=== PATIENT | female | born 1985 | race Caucasian/White ===

== ENCOUNTER 2022-08-02 19:07 | Emergency (ER) | payer OTHER, SELFPAY ==
[2022-08-02 19:19] VITALS: BP 181/130; PULSE 113; RESP 16; TEMP 36.6; O2SAT 99
--- NOTE | 2022-08-02 19:23 | ED.DENTAL ---
HPI - Dental/Oral General Chief complaint: Dental/Oral Stated complaint: tooth ache Time Seen by Provider: 08/02/22 19:30 Source: patient Mode of arrival: ambulatory History of Present Illness HPI Narrative: 36-year-old female presented for complaint of right lower dental pain and jaw swelling worsening over the past 3 days. Denies associated nausea, vomiting, fevers or chills. She has been using cold packs, Tylenol, ibuprofen, Orajel and rinsing with warm salt water. She denies drug use. Smokes half pack per day. MD Complaint: tooth pain Related Data Allergies Allergy/AdvReac Type Severity Reaction Status Date / Time diphenhydramine Allergy Intermediate Unknown Verified 08/02/22 19:13 metoclopramide Allergy Intermediate Unconscious Verified 08/02/22 19:13 Penicillins Allergy Intermediate Unknown Verified 08/02/22 19:13 adhesive Allergy Unknown RASH Verified 06/26/22 13:45 tree nut Allergy Unknown Unknown Verified 06/26/22 13:45 Contrast Media Allergy Intermediate Unknown Uncoded 08/02/22 19:13 Review of Systems Review of Systems: CONSTITUTIONAL: Denies body aches, fever, chills ENT: Denies rhinorrhea, congestion, sore throat, or otalgia. Reports dental pain CARDIOVASCULAR: Denies chest pain, palpitations RESPIRATORY: Denies cough or dyspnea. SKIN: Denies rash, itching, or wounds. MUSCULOSKELETAL: Denies myalgia. NEUROLOGIC: Denies headache, numbness, tingling, or weakness. PMFSH Comments At time of signature, I have reviewed and agree with nursing past medical, surgical, social and family history unless otherwise noted. Please see nursing chart for further information. There is no relevant family history pertinent to the presenting complaint Exam Narrative: GENERAL: Appears in pain; no acute distress. HEAD: Normocephalic, atraumatic. EYES: EOMI. No redness or drainage. Conjunctivae normal. ENT: Dental pain location of #30, moderate medial gum swelling and erythema c/w abscess without active drainage; tooth is broken and brown in color. Mucous membranes pink and moist. TMs normal bilaterally. Throat normal. Uvula midline. NECK: Normal AROM. No lymphadenopathy. CHEST: Clear to auscultation. HEART: Regular rate and rhythm. No murmur appreciated. SKIN: Warm, dry, no rash. Normal skin turgor. NEURO: Alert and oriented x3. Course Course Emergency Course: Patient is aware of diagnosis, understands and agrees to treatment plan. Anticipatory guidance given. Patient agrees to follow-up as directed and is aware of reasons to seek care at the emergency department. Portions of this record may have been created with voice recognition software Level of Care: Express Care Visit Vital Signs Vital signs: Vital Signs Temperature 97.9 F 08/02/22 19:19 Pulse Rate 113 H 08/02/22 19:19 Respiratory Rate 16 08/02/22 19:19 Blood Pressure 181/130 H 08/02/22 19:19 Pulse Oximetry 99 08/02/22 19:19 Oxygen Delivery Room Air 08/02/22 19:19 Temperature 97.9 F 08/02/22 19:34 Pulse Rate 113 H 08/02/22 19:34 Respiratory Rate 16 08/02/22 19:34 Blood Pressure 181/130 H 08/02/22 19:34 Pulse Oximetry 99 08/02/22 19:34 Oxygen Delivery Room Air 08/02/22 19:34 MDM - Dental/Oral MDM Narrative Medical decision making narrative: Patients has right lower dental abscess on exam. There are no focal signs of space occupying lesions that are compromising to the airway; No uvular deviation or soft palate edema. Patient is non-toxic appearing. The floor of the mouth is soft with no signs of Kaz's Angina; no induration below mandible, no neck pain. Patient is without trismus or drooling and able to swallow secretions. Rx abx reviewed with pt. Pt's blood pressure is 180/130. Scarring to arms, pt states from hives. Denies drug use. States BP is always elevated, and I'm in pain and stressed. The patient is clinically sober, AA&Ox3, free from distracting injury. The patient has demonstrated concrete
[2022-08-02 19:34] VITALS: BP 181/130; PULSE 113; RESP 16; TEMP 36.6; O2SAT 99
--- NOTE | 2022-08-02 19:42 | PC.NURSE ---
bp rechecked manually left arm. 180/120.
== END 2022-08-02 19:57 | disposition left against medical advice (07) ==
PROVIDERS: Emergency Provider Nurse Practitioner Family
DX: K04.7 Periapical abscess without sinus (principal); I16.0 Hypertensive urgency; F17.200 Nicotine dependence, unspecified, uncomplicated
CPT/HCPCS: 99213; G0463

== ENCOUNTER 2024-12-10 15:23 | Emergency (ER) | payer OTHER, SELFPAY ==
--- NOTE | 2024-12-10 15:31 | ED.GENADULT ---
HPI - General Adult General Chief complaint: Animal Bite Stated complaint: dog bite Time Seen by Provider: 12/10/24 15:31 Source: patient Mode of arrival: ambulatory Limitations: no limitations History of Present Illness HPI narrative: 38-year-old female patient presents to the [facility] with complaints of a dog bite to the right inner thigh. Patient states she got bit last night. Patient states she does not know the dog and thinks it was a stray. Patient states she did not clean it afterwards just put some Band-Aids on the inner thigh last night went to bed. Patient unaware of when her last tetanus shot was. Patient states that she was on medication for high blood pressure but no longer takes it because she had lost her insurance. Patient states she is having a lot of pain to the area. Denies any body aches, chills. Patient able to ambulate without issue. Related Data Allergies Allergy/AdvReac Type Severity Reaction Status Date / Time diphenhydramine Allergy Intermediate Unknown Verified 12/10/24 15:40 iohexol (From contrast - CT, Allergy Intermediate Unknown Verified 12/10/24 15:54 X-RAY) metoclopramide Allergy Intermediate Unconscious Verified 12/10/24 15:40 Penicillins Allergy Intermediate Unknown Verified 12/10/24 15:40 adhesive Allergy Unknown RASH Verified 12/10/24 15:40 tree nut Allergy Unknown Unknown Verified 12/10/24 15:40 Review of Systems Review of Systems: CONSTITUTIONAL: Denies fever, chills, or sweats. EYES: Denies visual changes, redness, or discharge. ENT: Denies rhinorrhea, congestion, sore throat, or otalgia. CARDIOVASCULAR: Denies chest pain, palpitations, or edema. RESPIRATORY: Denies cough or dyspnea. GASTROINTESTINAL: Denies abdominal pain, nausea, vomiting, or diarrhea. GENITOURINARY: Denies dysuria or hematuria. SKIN: Denies rash or itching. Positive dog bite to right inner thigh MUSCULOSKELETAL: Denies back pain, joint pain, or myalgia. NEUROLOGIC: Denies headache, numbness, or weakness. PSYCHIATRIC: Denies anxiety or depression. [facility] Past Medical History Medical History (Updated 12/10/24 @ 16:16 by ESSIE Cooper) Anemia Anxiety Anorexia Depression Chronic back pain GERD (gastroesophageal reflux disease) Diverticulitis Bronchitis Asthma Hypertension Migraines Seasonal allergies Surgical History Surgical History (Updated 12/10/24 @ 15:35 by ESSIE Cooper) H/O tubal ligation History of appendectomy History of tonsillectomy Comments At the time of my signature I agree with nursing past medical history, surgical, social, and family history. There is no relevant family history pertinent to the presenting complaint. Exam Narrative: GENERAL: Well-appearing, well-nourished, and in no acute distress. HEAD: Normocephalic, atraumatic. EYES: PERRLA and EOMI. ENT: Nares clear, no rhinorrhea or epistaxis. Mucous membranes moist. NECK: Supple. No lymphadenopathy CHEST: Clear to auscultation. No respiratory distress. HEART: Regular rate and rhythm. No murmur heard. Normal peripheral pulses. ABDOMEN: Soft, nontender, nondistended, normal active bowel sounds. EXTREMITIES: Normal range of motion. No edema. SKIN: Warm, dry, no rash. Patient has a wound to the right inner thigh measuring approximately 5 and half by 2 cm with no skin over the area and fat exposed. Patient also has another puncture wound noted near the buttocks area measuring approximately 0.5 x 0.5 cm. No surrounding erythema and no warmth present. NEURO: No focal deficits. Alert and oriented x3. Course Course Level of Care: Express Care Visit Vital Signs Vital signs: Vital Signs Temperature 36.8 C 12/10/24 15:39 Pulse Rate 118 H 12/10/24 15:39 Respiratory Rate 18 12/10/24 15:39 Blood Pressure 184/137 H 12/10/24 15:39 Pulse Oximetry 100 12/10/24 15:39 Oxygen Delivery Room Air 12/10/24 15:39 Temperature 36.8 C 12/10/24 15:39 Pulse Rate 118 H 12/10/24 15:39 Respiratory Rate 18 12/10/24 15:39 Blood Pressure 184/137 H 12/10/24 15:39 Pulse Oximetry 100 12/10/24 15:39 Oxygen Delivery Room Air 12/10/24 15:39 vital signs reviewed. The patient has been informed that they may have pre-hypertension or Hypertension based on a BP reading in the department. I recommend that the patient call the primary care provider listed on their discharge instructions or a physician of their choice this week to arrange follow up for further evaluation of possible pre-hypertension or Hypertension Medical Decision Making MDM Narrative Medical decision making narrative: plan of care for patient is to update tetanus today will clean and dress the wound since it is past 24 hours for suturing. We will discharge home on antibiotics however discussed with patient the fact that she did not clean it right when it happened this could get worse and she may need to go the ER for IV antibiotics. Highly recommend the patient go to the ER for antibiotics today however she has refused At this time but states she may go later. Discussed with patient we will put her on 2 types of antibiotics as well as an antibiotic ointment. She should not have to trying change the dressing today but tomorrow morning she will need to change the dressing, clean with soap water apply the ointment. I also gave her 3 days worth of pain medication considering where the wound is at and how painful it could be. Discussed with patient possible sepsis and symptoms of sepsis and if these occur she needs to go to the ER immediately. Patient verbalized understanding denies any other questions or concerns at this time Differential Diagnosis Differential Diagnosis: Differential diagnosis: Abscess, cellulitis, hidradenitis, laceration, puncture wound. Vital Signs Vital Signs: Vital Signs Temperature 36.8 C 12/10/24 15:39 Pulse Rate 118 H 12/10/24 15:39 Respiratory Rate 18 12/10/24 15:39 Blood Pressure 184/137 H 12/10/24 15:39 Pulse Oximetry 100 12/10/24 15:39 Oxygen Delivery Room Air 12/10/24 15:39 Temperature 36.8 C 12/10/24 15:39 Pulse Rate 118 H 12/10/24 15:39 Respiratory Rate 18 12/10/24 15:39 Blood Pressure 184/137 H 12/10/24 15:39 Pulse Oximetry 100 12/10/24 15:39 Oxygen Delivery Room Air 12/10/24 15:39 Critical Care Time Critical Care Time Critical Care Time: No Discharge Plan Discharge Clinical Impression: Bite by animal Patient Disposition: Home, Self-Care Condition: Stable Instructions: Antibiotic Form, Animal Bite (ED) Additional Instructions: Normal bites can cause infection. Teeth carried germs into the skin. Sometimes these wounds should be closed, especially on the face, but is usually better to let it heal on its own because this decreases the chance of infection. Call your doctor or return to the emergency department if patient worsens or: Fever occurs. Redness or swelling occurs near the wound. Pus found in the wound. Chills, nausea, or vomiting occur. Pain is worse. Joints become painful. Keep the wound clean. She was soap and water. Tetanus shots: Everyone should have a tetanus shot every 5-10 years. He received a tetanus shot today, be sure to tell your primary care doctor about this to update your shot record. Some tetanus shots are combination shots, such as tetanus-diphtheria (Td), or tetanus- diphtheria- pertussis (Tdap). Tell your primary doctor which when you received. If you're not sure about her tetanus status, her doctor's office tomorrow to find out whether you need a booster shot. Rabies: If you need shots to prevent rabies, you will need several shots. He might need to report this to animal control or the local police. These refer to the deep provided to you at check in regards to the rabies shots. Patient Language: Telugu Prescriptions: New clindamycin HCl 300 mg capsule 300 mg PO TID 10 Days Qty: 30 0RF clindamycin HCl 150 mg capsule 150 mg PO TID 10 Days Qty: 30 0RF ciprofloxacin HCl 500 mg tablet 500 mg PO Q12H 10 Days Qty: 20 0RF mupirocin [Centany] 2 % ointment 1 applic topical BID Qty: 22 0RF tramadol 50 mg tablet 50 mg PO Q6H PRN (Reason: pain) 3 Days Qty: 12 0RF Follow-up/Referrals: PHYSICIAN,PEDIATRIC DENTAL ASSISTANT [Primary Care Provider] - Stand Alone Forms: Work/School Release IP Time of Disposition: 16:22
[2024-12-10 15:39] VITALS: BP 184/137; PULSE 118; RESP 18; TEMP 36.8; O2SAT 100
[2024-12-10] MEDS: TETANUS,DIPHTHERIA,AC PERTUSSIS ADULT (0.5 ML) BOOSTRIX IM (16:15)
[2024-12-10 16:29] VITALS: BP 190/125
== END 2024-12-10 16:29 | disposition home or self-care (01) ==
PROVIDERS: Emergency Provider Nurse Practitioner Family
DX: S71.131A Puncture wound without foreign body, right thigh, initial encounter (principal); W54.0XXA Bitten by dog, initial encounter; Z23 Encounter for immunization; K21.9 Gastro-esophageal reflux disease without esophagitis; J45.909 Unspecified asthma, uncomplicated; I10 Essential (primary) hypertension
CPT/HCPCS: 90471; 90715; 99213; G0463